=== PATIENT | male | born 1985 | race Caucasian/White ===

== ENCOUNTER 2016-07-30 14:50 | Emergency (ER) | payer SELFPAY ==
[~2016-07-30] VITALS: Ht 182.9 cm; Wt 84.0 kg
[2016-07-30 14:52] VITALS: BP 129/78; PULSE 107; RESP 24; TEMP 101.2; O2SAT 94
[2016-07-30] MEDS ORDERED: IBUPROFEN 800 MG TAB PO ONE (16:15)
[2016-07-30] MEDS ORDERED: SODIUM CHLOR 0.9% 1000 ML INJ 1,000 ML IV ONE ×2 (16:15→17:45)
--- NOTE | 2016-07-30 16:15 | PD ---
HPI Chief Complaint: Fever Time Seen by Provider: 16:06 Travel History International Travel<30 days: No Contact w/Intl Traveler<30days: No Traveled to known affect area: No History of Present Illness HPI Patient is a 31-year-old male who presents emergency for evaluation of fever, sore throat, headache, cough, nausea, body aches. He states his symptoms have been ongoing for 2 days. He reports being seen in another emergency department yesterday and being told he was dehydrated and discharged home. He denies any chest pain, shortness of breath, abdominal pain, vomiting, diarrhea. Patient reports taking Tylenol 2 tablets approximately 4 hours ago, he does not know the dose. Has a history of IV drug use stated that he has been clean for 2 months and currently living in a skilled nursing house. His past medical history is significant for hepatitis C. [facility] Past Medical History Hepatitis: Yes (C) Medical other: Yes (history of IV drug use, meth) Past Surgical History Oral Surgery: Yes (jaw surgery) Social History Alcohol Use: No Tobacco Use: Yes Substance Use: No (history of IV meth up until 2 months prior to today) Allergies-Medications (Allergen,Severity, Reaction): Coded Allergies: No Known Allergies (Unverified , 07/30/16) Reported Meds & Prescriptions Reported Meds & Active Scripts Active No Active Prescriptions or Reported Medications Review of Systems Except as stated in HPI: all other systems reviewed are Neg General / Constitutional: Positive: Fever, Chills Eyes: No: Visual changes HENT: Positive: Headaches, Sore Throat, No: Neck Stiffness, Neck Pain Cardiovascular: No: Chest Pain or Discomfort Respiratory: Positive: Cough, Pleuritic Pain, No: Shortness of Breath Gastrointestinal: Positive: Nausea, Loss of Appetite, No: Vomiting, Diarrhea, Abdominal Pain Genitourinary: No: Dysuria Musculoskeletal: Positive: Myalgias Neurologic: Positive: Headache, No: Weakness, Dizziness, Syncope Physical Exam Narrative GENERAL: Alert, well-developed, well-nourished, male. Resting comfortably in no acute distress. SKIN: Warm and dry. HEAD: Atraumatic. Normocephalic. EYES: Pupils equal and round. No scleral icterus. No injection or drainage. ENT: No nasal bleeding or discharge. Mucous membranes pink and moist. Erythema noted to posterior pharynx. Airway is patent. NECK: Trachea midline. No JVD. No meningeal signs. CARDIOVASCULAR: Regular rhythm, tachycardic. No murmur appreciated. RESPIRATORY: No accessory muscle use. Clear to auscultation. Breath sounds equal bilaterally. GASTROINTESTINAL: Abdomen soft, non-tender, nondistended. Hepatic and splenic margins not palpable. MUSCULOSKELETAL: No obvious deformities. No clubbing. No cyanosis. No edema. NEUROLOGICAL: Awake and alert. No obvious cranial nerve deficits. Motor grossly within normal limits. Normal speech. PSYCHIATRIC: Appropriate mood and affect; insight and judgment normal. Data Data Last Documented VS Vital Signs Date Time Temp Pulse Resp B/P Pulse Ox O2 Delivery O2 Flow Rate FiO2 07/30/16 18:53 99.4 98 18 99/54 96 Room Air Orders Electrocardiogram (07/30/16 16:03) Complete Blood Count With Diff (07/30/16 16:03) Comprehensive Metabolic Panel (07/30/16 16:03) Lactic Acid Sepsis Protocol (07/30/16 16:03) Urinalysis - C+S If Indicated (07/30/16 16:03) Influenzae A/B Antigen (07/30/16 16:03) Blood Culture (07/30/16 16:03) Chest, Single Ap (07/30/16 16:03) Ibuprofen (Motrin) (07/30/16 16:15) Sodium Chlor 0.9% 1000 Ml Inj (Ns 1000 M (07/30/16 16:15) ^ Indirect Sales Exec / Telemetry (07/30/16 16:03) Oximetry (07/30/16 16:03) Drug Screen, Random Urine (07/30/16 16:03) Iv Access Insert/Monitor (07/30/16 16:03) Group A Rapid Strep Screen (07/30/16 16:06) Strep Culture (Group A) (07/30/16 14:18) Sodium Chlor 0.9% 1000 Ml Inj (Ns 1000 M (07/30/16 17:45) Acetaminophen (Tylenol) (07/30/16 17:45) Labs Laboratory Tests Test 07/30/16 07/30/16 14:10 14:18 White Blood Count 9.3 TH/MM3 Red Blood Count 4.71 MIL/MM3 Hemoglobin 14.2 GM/DL Hematocrit 41.0 % Mean Corpuscular Volume 87.1 FL Mean Corpuscular Hemoglobin 30.3 PG Mean Corpuscular Hemoglobin 34.7 % Concent Red Cell Distribution Width 12.6 % Platelet Count 127 TH/MM3 Mean Platelet Volume 8.8 FL Neutrophils (%) (Auto) 89.0 % Lymphocytes (%) (Auto) 4.6 % Monocytes (%) (Auto) 6.0 % Eosinophils (%) (Auto) 0.1 % Basophils (%) (Auto) 0.3 % Neutrophils # (Auto) 8.3 TH/MM3 Lymphocytes # (Auto) 0.4 TH/MM3 Monocytes # (Auto) 0.6 TH/MM3 Eosinophils # (Auto) 0.0 TH/MM3 Basophils # (Auto) 0.0 TH/MM3 CBC Comment DIFF FINAL Differential Comment Sodium Level 135 MEQ/L Potassium Level 3.9 MEQ/L Chloride Level 102 MEQ/L Carbon Dioxide Level 25.6 MEQ/L Anion Gap 7 MEQ/L Blood Urea Nitrogen 11 MG/DL Creatinine 0.88 MG/DL Estimat Glomerular Filtration 102 ML/MIN Rate Random Glucose 123 MG/DL Lactic Acid Level 1.2 mmol/L Calcium Level 8.4 MG/DL Total Bilirubin 0.4 MG/DL Aspartate Amino Transf 47 U/L (AST/SGOT) Alanine Aminotransferase 284 U/L (ALT/SGPT) Alkaline Phosphatase 61 U/L Total Protein 6.5 GM/DL Albumin 3.1 GM/DL Urine Color LIGHT-YELLOW Urine Turbidity CLEAR Urine pH 5.5 Urine Specific [place] 1.009 Urine Protein NEG mg/dL Urine Glucose (UA) NEG mg/dL Urine Ketones NEG mg/dL Urine Occult Blood NEG Urine Nitrite NEG Urine Bilirubin NEG Urine Urobilinogen LESS THAN 2.0 MG/DL Urine Leukocyte Esterase NEG Urine RBC LESS THAN 1 /hpf Urine WBC 1 /hpf Urine Mucus FEW /lpf Microscopic Urinalysis Comment CATH-CULT NOT IND Urine Opiates Screen NEG Urine Barbiturates Screen NEG Urine Amphetamines Screen NEG Urine Benzodiazepines Screen NEG Urine Cocaine Screen NEG Urine Cannabinoids Screen NEG MDM Medical Decision Making Medical Screen Exam Complete: Yes Emergency Medical Condition: Yes Interpretation(s) Vital Signs Date Time Temp Pulse Resp B/P Pulse Ox O2 Delivery O2 Flow Rate FiO2 07/30/16 14:52 101.2 107 24 129/78 94 Room Air Differential Diagnosis Viral syndrome versus sepsis versus pneumonia versus UTI versus pharyngitis versus other Narrative Course Patient is a 31-year-old male who presented to emergency department for evaluation of fever, chills, sore throat, cough, nausea. His symptoms have been going on for approximately 2 days. He was seen and evaluated in another emergency department yesterday and told he was dehydrated and sent home. He states that he took Tylenol 4 hours ago and denies any current IV drug use. Upon arrival to [facility] patient's temperature was reassessed at 103. Patient was placed on telemetry monitoring, continuous pulse oximetry, IV access was initiated. Labs and imaging ordered and pending. Ibuprofen ordered for his temp of 103. Patient be given 1 L of IV fluids at this time as well. CBC, lactic acid, chemistry, urinalysis are unremarkable, chest x-ray shows cardiomegaly otherwise normal examination, blood cultures are pending. Influenza and strep screen are negative. His symptoms have been ongoing for approximately 2 days, patient is likely experiencing a viral syndrome. His urine drug screen is negative. Vital signs reassessed, temperature is currently 102.4 and his heart rate continues to be 112. Patient will be given an additional liter of normal saline IV as well as acetaminophen by mouth. We'll reassess. After an additional liter of normal saline as well as oral acetaminophen patient 's temp was reassessed at 99.4 and his heart rate is 98. Patient was encouraged to maintain adequate fluid intake, take ibuprofen as needed and as directed for fevers and pain. He was further encouraged to return to emergency department for any new or worsening symptoms. Patient verbalized understanding of these instructions. Patient stable for discharge. Diagnosis Primary Impression: Viral syndrome Referrals: [facility] Primary Care Physician Patient Instructions: General Instructions, Viral Syndrome (ED) Additional Instructions: Take ibuprofen as needed and as directed for fevers and pain Maintain adequate fluid intake to avoid dehydration Follow-up with your primary care provider or at [facility] Return to emergency department for any new or worsening symptoms Med/Other Pt SpecificInfo: Prescription(s) given Scripts Ibuprofen 800 Mg [id number] Mg PO Q6HR PRN (PAIN) 10 Days Ref 0 Prov:Anat Lr 07/30/16 Disposition: 01 DISCHARGE HOME Condition: Stable Anat Lr Jul 30, 2016 16:15
[2016-07-30 16:33] VITALS: BP 109/61; PULSE 108; RESP 18; TEMP 103; O2SAT 97
[2016-07-30 16:33] LABS: AUTOMATED NEUTROPHIL # 8.3 TH/MM3 (1.8-7.7); BASOPHIL % 0.3 % (0.0-2.0); EOSINOPHIL % 0.1 % (0.0-4.0); HEMO FLAGS DIFF FINAL; LYMPH % 4.6 % (9.0-44.0); LYMPHOCYTE # 0.4 TH/MM3 (1.0-4.8); MEAN CELL VOLUME 87.1 FL (80.0-100.0); MEAN CORPUSCULAR HEMOGLOBIN 30.3 PG (27.0-34.0); MEAN CORPUSCULAR HGB CONC 34.7 % (32.0-36.0); PLATELET COUNT 127 TH/MM3 (150-450); RED BLOOD COUNT 4.71 MIL/MM3 (4.50-5.90); RED CELL DISTRIBUTION WIDTH 12.6 % (11.6-17.2); WHITE BLOOD COUNT 9.3 TH/MM3 (4.0-11.0)
[2016-07-30 16:33] LABS: BLOOD, URINE NEG (NEG); GLUCOSE,URINE NEG (NEG); KETONE, URINE NEG (NEG); MUCUS URINE FEW /lpf (OCC); NITRITE,URINE NEG (NEG); PH, URINE 5.5 (5.0-8.5); URINE COLOR LIGHT-YELLOW (YELLW/STRAW)
[2016-07-30 16:34] LABS: COMMENT (UR) CATH-CULT NOT IND; CULTURE IF INDICATED CATH CULTURE NOT IND
--- NOTE | 2016-07-30 16:36 | RADRPT ---
EXAM DATE/TIME: 07/30/2016 16:14 [facility] COMPARISON: No previous studies available for comparison. INDICATIONS : Fever MEDICAL HISTORY : None. SURGICAL HISTORY : None. ENCOUNTER: Initial ACUITY: 3 days PAIN SCORE: 0/10 LOCATION: Bilateral chest FINDINGS: The heart is enlarged. The pulmonary vascular pattern is normal. The lungs are clear. CONCLUSION: 1. Cardiomegaly. 2. No acute focal pulmonary infiltrate or pulmonary vascular congestion. Stephane Frias MD on July 30, 2016 at 16:25 Board Certified Radiologist. This report was verified electronically.
[2016-07-30 16:39] LABS: AMPHETAMINE, URINE NEG (NEG); BARBITURATES, URINE NEG (NEG); COCAINE, URINE NEG (NEG)
[2016-07-30 16:53] LABS: ALKALINE PHOSPHATASE 61 U/L (45-117); ALT (GPT) 284 U/L (12-78); ANION GAP 7 MEQ/L (5-15); AST (GOT) 47 U/L (15-37); BICARBONATE 25.6 MEQ/L (21.0-32.0); BLOOD UREA NITROGEN 11 MG/DL (7-18); CHLORIDE 102 MEQ/L (98-107); GLOMERULAR FILTRATION RATE 102 ML/MIN (>89); POTASSIUM 3.9 MEQ/L (3.5-5.1); SODIUM (NA) 135 MEQ/L (136-145); TOTAL BILIRUBIN ADULT 0.4 MG/DL (0.2-1.0)
--- NOTE | 2016-07-30 17:07 | PD ---
Data Data Last Documented VS Vital Signs Date Time Temp Pulse Resp B/P Pulse Ox O2 Delivery O2 Flow Rate FiO2 07/30/16 16:33 103.0 108 18 109/61 97 Room Air Orders Electrocardiogram (07/30/16 16:03) Complete Blood Count With Diff (07/30/16 16:03) Comprehensive Metabolic Panel (07/30/16 16:03) Lactic Acid Sepsis Protocol (07/30/16 16:03) Urinalysis - C+S If Indicated (07/30/16 16:03) Influenzae A/B Antigen (07/30/16 16:03) Blood Culture (07/30/16 16:03) Chest, Single Ap (07/30/16 16:03) Ibuprofen (Motrin) (07/30/16 16:15) Sodium Chlor 0.9% 1000 Ml Inj (Ns 1000 M (07/30/16 16:15) ^ Electromechanical Assembly Technician / Telemetry (07/30/16 16:03) Oximetry (07/30/16 16:03) Drug Screen, Random Urine (07/30/16 16:03) Iv Access Insert/Monitor (07/30/16 16:03) Group A Rapid Strep Screen (07/30/16 16:06) Strep Culture (Group A) (07/30/16 14:18) Labs Laboratory Tests Test 07/30/16 07/30/16 14:10 14:18 White Blood Count 9.3 TH/MM3 Red Blood Count 4.71 MIL/MM3 Hemoglobin 14.2 GM/DL Hematocrit 41.0 % Mean Corpuscular Volume 87.1 FL Mean Corpuscular Hemoglobin 30.3 PG Mean Corpuscular Hemoglobin 34.7 % Concent Red Cell Distribution Width 12.6 % Platelet Count 127 TH/MM3 Mean Platelet Volume 8.8 FL Neutrophils (%) (Auto) 89.0 % Lymphocytes (%) (Auto) 4.6 % Monocytes (%) (Auto) 6.0 % Eosinophils (%) (Auto) 0.1 % Basophils (%) (Auto) 0.3 % Neutrophils # (Auto) 8.3 TH/MM3 Lymphocytes # (Auto) 0.4 TH/MM3 Monocytes # (Auto) 0.6 TH/MM3 Eosinophils # (Auto) 0.0 TH/MM3 Basophils # (Auto) 0.0 TH/MM3 CBC Comment DIFF FINAL Differential Comment Sodium Level 135 MEQ/L Potassium Level 3.9 MEQ/L Chloride Level 102 MEQ/L Carbon Dioxide Level 25.6 MEQ/L Anion Gap 7 MEQ/L Blood Urea Nitrogen 11 MG/DL Creatinine 0.88 MG/DL Estimat Glomerular Filtration 102 ML/MIN Rate Random Glucose 123 MG/DL Lactic Acid Level 1.2 mmol/L Calcium Level 8.4 MG/DL Total Bilirubin 0.4 MG/DL Aspartate Amino Transf 47 U/L (AST/SGOT) Alanine Aminotransferase 284 U/L (ALT/SGPT) Alkaline Phosphatase 61 U/L Total Protein 6.5 GM/DL Albumin 3.1 GM/DL Urine Color LIGHT-YELLOW Urine Turbidity CLEAR Urine pH 5.5 Urine Specific [place] 1.009 Urine Protein NEG mg/dL Urine Glucose (UA) NEG mg/dL Urine Ketones NEG mg/dL Urine Occult Blood NEG Urine Nitrite NEG Urine Bilirubin NEG Urine Urobilinogen LESS THAN 2.0 MG/DL Urine Leukocyte Esterase NEG Urine RBC LESS THAN 1 /hpf Urine WBC 1 /hpf Urine Mucus FEW /lpf Microscopic Urinalysis Comment CATH-CULT NOT IND Urine Opiates Screen NEG Urine Barbiturates Screen NEG Urine Amphetamines Screen NEG Urine Benzodiazepines Screen NEG Urine Cocaine Screen NEG Urine Cannabinoids Screen NEG MDM Supervised Visit with FARRAH: Yes Narrative Course I, Dr. Parks, have reviewed the advance practice practioner's documentation and am in agreement, met with the patient face to face, made the diagnosis, and the medical decision making was done by me. *My assessment and Findings: 31-year-old male with history of methamphetamine IVDU, hepatitis C here with complaint of 2 days of generalized body aches, fever , sore throat, nausea, cough. Patient seen in outside emergency department and diagnosed with dehydration and discharged home. Patient states his temperature seemed higher today, prompting ER visit. Patient's slightly tachycardic, heart rate 103. He really doesn't have any localizing symptoms. No recent travel or sick contacts and he denies IV drug use for the last 2 months. No evidence of erythema, abscess at injection sites on exam. There does not appear to be any fresh track harrison. Tachycardic, regular rhythm. No murmurs. Abdomen is soft. Differential includes viral syndrome, influenza, strep pharyngitis, UTI, intra -abdominal pathology, bacteremia. The entirety of patient's laboratory workup, imaging was unremarkable. Patient felt improved after IV fluids and symptom control will be discharged home while we await blood cultures. Scripts No Active Prescriptions or Reported Meds Berta Parks MD Jul 30, 2016 17:07
[2016-07-30] MEDS ORDERED: ACETAMINOPHEN 500 MG CPLT PO ONE (17:45)
[2016-07-30 18:08] VITALS: BP 100/55; PULSE 106; RESP 18; O2SAT 96
[2016-07-30 18:53] VITALS: BP 99/54; PULSE 98; RESP 18; TEMP 99.4; O2SAT 96
[2016-07-30] MEDS ORDERED: IBUP800T23 PO (18:58)
--- NOTE | 2016-07-30 21:29 | EKG ---
Date Performed: 07/30/2016 Time Performed: 16:22:22 PTAGE: 31 years EKG: SINUS TACHYCARDIA NONSPECIFIC T-WAVE ABNORMALITY ABNORMAL RHYTHM ECG NO PREVIOUS TRACING DOCTOR: Brandt Saavedra Interpretating Date/Time 07/30/2016 21:27:19
== END 2016-07-30 19:11 | disposition home or self-care (01) ==
LOC: NEPC 14:50
DX: B34.9 Viral infection, unspecified (principal); R50.9 Fever, unspecified; J02.9 Acute pharyngitis, unspecified; R51 Headache; R05 Cough; R11.0 Nausea; B19.20 Unspecified viral hepatitis C without hepatic coma; Z72.0 Tobacco use; R00.0 Tachycardia, unspecified
CPT/HCPCS: 71010; 80053; 80307; 81001; 83605; 85025; 87040; 87081; 87804; 87880; 93005; 96360; 96361; 99284; J7030

== ENCOUNTER 2017-04-22 23:23 | Emergency (ER) | payer OTHER ==
[~2017-04-22] VITALS: Ht 170.2 cm; Wt 80.0 kg
[~2017-04-22 23:23] MED LIST: IBUP800T23 PO
[2017-04-22 23:45] VITALS: BP 126/79; PULSE 94; RESP 20; TEMP 98.3; O2SAT 100
[2017-04-23] MEDS ORDERED: SODIUM CHLOR 0.9% 1000 ML INJ 1,000 ML IV ONE
[2017-04-23] MEDS ORDERED: LORazepam 2 MG/ML VIAL IV PUSH ONE
[2017-04-23] MEDS ORDERED: SODIUM CHLORIDE 0.9% FLUSH 10 ML FLUSH IVF PRN
--- NOTE | 2017-04-23 00:20 | PD ---
HPI Chief Complaint: Psychiatric Symptoms Time Seen by Provider: 23:54 Travel History International Travel<30 days: No Contact w/Intl Traveler<30days: No History of Present Illness HPI Patient is a 32-year-old male presenting to the emergency Department under [place] act for psychiatric evaluation. Patient was hallucinating, he reported that they were been trying to break into his house and he himself called the police. When police arrived on scene there was no one in his house although patient still felt that there was. Patient admits to using methamphetamines, he states he has not used any methamphetamines in the last 48 hours. Patient is denying any hallucinations, he denies any suicidal or homicidal ideations. [facility] Past Medical History Hepatitis: Yes (C) Past Surgical History Oral Surgery: Yes (jaw surgery) Social History Alcohol Use: No Tobacco Use: Yes (1 ppd) Substance Use: Yes (methamphetamine) Allergies-Medications (Allergen,Severity, Reaction): Coded Allergies: No Known Allergies (Unverified , 07/30/16) Reported Meds & Prescriptions Reported Meds & Active Scripts Active Ibuprofen 800 Mg Tab 800 Mg PO Q6HR PRN 10 Days Review of Systems Except as stated in HPI: all other systems reviewed are Neg Psychiatric: Positive: Disorder of Thought, Mood Disorder, Substance Abuse Physical Exam Narrative GENERAL: Well-developed, well-nourished, alert male. SKIN: Warm and dry. HEAD: Atraumatic. Normocephalic. EYES: Pupils equal and round. No scleral icterus. No injection or drainage. ENT: No nasal bleeding or discharge. Mucous membranes pink and moist. NECK: Trachea midline. No JVD. CARDIOVASCULAR: Regular rate and rhythm. RESPIRATORY: No accessory muscle use. Clear to auscultation. Breath sounds equal bilaterally. GASTROINTESTINAL: Abdomen soft, non-tender, nondistended. Hepatic and splenic margins not palpable. MUSCULOSKELETAL: Extremities without clubbing, cyanosis, or edema. No obvious deformities. NEUROLOGICAL: Awake and alert. No obvious cranial nerve deficits. Motor grossly within normal limits. Five out of 5 muscle strength in the arms and legs. Normal speech. PSYCHIATRIC: Agitated mood and affect; insight and judgment impaired. Hallucinations Data Data Last Documented VS Vital Signs Date Time Temp Pulse Resp B/P (MAP) Pulse Ox O2 Delivery O2 Flow Rate FiO2 04/23/17 01:57 72 18 114/57 (76) 98 Room Air Orders Orders Complete Blood Count With Diff (04/22/17 23:51) Comprehensive Metabolic Panel (04/22/17 23:51) Urinalysis - C+S If Indicated (04/22/17 23:51) Oximetry (04/22/17 23:51) Iv Access Insert/Monitor (04/22/17 23:51) Ecg Monitoring (04/22/17 23:51) Psych Screen (04/22/17 23:51) Sodium Chloride 0.9% Flush (Ns Flush) (04/23/17 00:00) Restraints Non-Violent CRISTHIAN.Q3H (04/22/17 23:51) Drug Screen, Random Urine (04/22/17 23:51) Alcohol (Ethanol) (04/22/17 23:51) Salicylates (Aspirin) (04/22/17 23:51) Tylenol (Acetaminophen) (04/22/17 23:51) Lorazepam Inj (Ativan Inj) (04/23/17 00:00) Sodium Chlor 0.9% 1000 Ml Inj (Ns 1000 M (04/23/17 00:00) Haloperidol Inj (Haldol Inj) (04/23/17 00:30) Diphenhydramine Inj (Benadryl Inj) (04/23/17 00:30) Labs Laboratory Tests Test 04/23/17 00:10 White Blood Count 10.1 TH/MM3 Red Blood Count 4.64 MIL/MM3 Hemoglobin 14.0 GM/DL Hematocrit 40.0 % Mean Corpuscular Volume 86.3 FL Mean Corpuscular Hemoglobin 30.3 PG Mean Corpuscular Hemoglobin Concent 35.1 % Red Cell Distribution Width 12.1 % Platelet Count 273 TH/MM3 Mean Platelet Volume 8.9 FL Neutrophils (%) (Auto) 57.9 % Lymphocytes (%) (Auto) 31.7 % Monocytes (%) (Auto) 7.7 % Eosinophils (%) (Auto) 1.9 % Basophils (%) (Auto) 0.8 % Neutrophils # (Auto) 5.9 TH/MM3 Lymphocytes # (Auto) 3.2 TH/MM3 Monocytes # (Auto) 0.8 TH/MM3 Eosinophils # (Auto) 0.2 TH/MM3 Basophils # (Auto) 0.1 TH/MM3 CBC Comment DIFF FINAL Differential Comment Blood Urea Nitrogen 12 MG/DL Creatinine 0.86 MG/DL Random Glucose 92 MG/DL Total Protein 7.5 GM/DL Albumin 4.3 GM/DL Calcium Level 8.6 MG/DL Alkaline Phosphatase 58 U/L Aspartate Amino Transf (AST/SGOT) 50 U/L Alanine Aminotransferase (ALT/SGPT) 112 U/L Total Bilirubin 0.8 MG/DL Sodium Level 142 MEQ/L Potassium Level 3.5 MEQ/L Chloride Level 108 MEQ/L Carbon Dioxide Level 25.7 MEQ/L Anion Gap 8 MEQ/L Estimat Glomerular Filtration Rate 104 ML/MIN Salicylates Level LESS THAN 1.7 MG/DL Acetaminophen Level LESS THAN 2.0 MCG/ML Ethyl Alcohol Level LESS THAN 3 MG/DL MDM Medical Decision Making Medical Screen Exam Complete: Yes Emergency Medical Condition: Yes Interpretation(s) Laboratory Tests Test 04/23/17 00:10 White Blood Count 10.1 TH/MM3 Red Blood Count 4.64 MIL/MM3 Hemoglobin 14.0 GM/DL Hematocrit 40.0 % Mean Corpuscular Volume 86.3 FL Mean Corpuscular Hemoglobin 30.3 PG Mean Corpuscular Hemoglobin Concent 35.1 % Red Cell Distribution Width 12.1 % Platelet Count 273 TH/MM3 Mean Platelet Volume 8.9 FL Neutrophils (%) (Auto) 57.9 % Lymphocytes (%) (Auto) 31.7 % Monocytes (%) (Auto) 7.7 % Eosinophils (%) (Auto) 1.9 % Basophils (%) (Auto) 0.8 % Neutrophils # (Auto) 5.9 TH/MM3 Lymphocytes # (Auto) 3.2 TH/MM3 Monocytes # (Auto) 0.8 TH/MM3 Eosinophils # (Auto) 0.2 TH/MM3 Basophils # (Auto) 0.1 TH/MM3 CBC Comment DIFF FINAL Differential Comment Blood Urea Nitrogen 12 MG/DL Creatinine 0.86 MG/DL Random Glucose 92 MG/DL Total Protein 7.5 GM/DL Albumin 4.3 GM/DL Calcium Level 8.6 MG/DL Alkaline Phosphatase 58 U/L Aspartate Amino Transf (AST/SGOT) 50 U/L Alanine Aminotransferase (ALT/SGPT) 112 U/L Total Bilirubin 0.8 MG/DL Sodium Level 142 MEQ/L Potassium Level 3.5 MEQ/L Chloride Level 108 MEQ/L Carbon Dioxide Level 25.7 MEQ/L Anion Gap 8 MEQ/L Estimat Glomerular Filtration Rate 104 ML/MIN Salicylates Level LESS THAN 1.7 MG/DL Acetaminophen Level LESS THAN 2.0 MCG/ML Ethyl Alcohol Level LESS THAN 3 MG/DL Vital Signs Date Time Temp Pulse Resp B/P (MAP) Pulse Ox O2 Delivery O2 Flow Rate FiO2 04/23/17 01:57 72 18 114/57 (76) 98 Room Air Differential Diagnosis Mood disorder versus substance abuse versus psychosis versus metabolic abnormality versus other Narrative Course Patient presented under [place] acted hallucinations. Patient continued to hallucinate in the emergency department. He became physically aggressive and verbally threatening. Patient had to be placed in locked restraints for his own safety as well as the safety of staff. Patient admitted to using methamphetamines however he states he did not use them the last 48 hours. He denies any visual or auditory hallucinations, he further denied any suicidal or homicidal ideations. Mental health screening discussed with the patient. Psychiatric screen ordered. Patient was given Haldol, Benadryl, Ativan. Patient was reassessed and was found to be resting comfortably. CBC, chemistry, salicylate, acetaminophen, alcohol level reviewed, no acute abnormalities identified. Patient is medically cleared for psychiatric evaluation at this time. Diagnosis Primary Impression: Medical clearance for psychiatric admission Condition: Stable Anat Lr Apr 23, 2017 00:20
[2017-04-23 00:30] LABS: AUTOMATED NEUTROPHIL # 5.9 TH/MM3 (1.8-7.7); BASOPHIL # 0.1 TH/MM3 (0-0.2); BASOPHIL % 0.8 % (0.0-2.0); EOSINOPHIL # 0.2 TH/MM3 (0-0.4); EOSINOPHIL % 1.9 % (0.0-4.0); HEMO FLAGS DIFF FINAL; LYMPH % 31.7 % (9.0-44.0); LYMPHOCYTE # 3.2 TH/MM3 (1.0-4.8); MEAN CELL VOLUME 86.3 FL (80.0-100.0); MEAN CORPUSCULAR HEMOGLOBIN 30.3 PG (27.0-34.0); MEAN CORPUSCULAR HGB CONC 35.1 % (32.0-36.0); MONO % 7.7 % (0.0-8.0); NEUT % 57.9 % (16.0-70.0); PLATELET COUNT 273 TH/MM3 (150-450); RED BLOOD COUNT 4.64 MIL/MM3 (4.50-5.90); RED CELL DISTRIBUTION WIDTH 12.1 % (11.6-17.2); WHITE BLOOD COUNT 10.1 TH/MM3 (4.0-11.0)
[2017-04-23] MEDS ORDERED: HALOPERIDOL LACTATE 5 MG/ML AMP IM ONE (00:30)
[2017-04-23] MEDS ORDERED: diphenhydrAMINE HCL 50 MG/ML VIAL IV PUSH ONE (00:30)
[2017-04-23 00:45] LABS: ANION GAP 8 MEQ/L (5-15); AST (GOT) 50 U/L (15-37); BICARBONATE 25.7 MEQ/L (21.0-32.0); BLOOD UREA NITROGEN 12 MG/DL (7-18); CHLORIDE 108 MEQ/L (98-107); GLOMERULAR FILTRATION RATE 104 ML/MIN (>89); POTASSIUM 3.5 MEQ/L (3.5-5.1); SODIUM (NA) 142 MEQ/L (136-145)
[2017-04-23 00:49] LABS: ALKALINE PHOSPHATASE 58 U/L (45-117); ALT (GPT) 112 U/L (12-78); TOTAL BILIRUBIN ADULT 0.8 MG/DL (0.2-1.0)
[2017-04-23 00:50] LABS: ACETAMINOPHEN LESS THAN 2.0 MCG/ML (10.0-30.0); ALCOHOL LESS THAN 3 MG/DL (0-5)
[2017-04-23 01:57] VITALS: BP 114/57; PULSE 72; RESP 18; O2SAT 98
[2017-04-23 10:25] VITALS: BP 116/60; PULSE 70; RESP 14; O2SAT 98
--- NOTE | 2017-04-23 17:45 | PD ---
History of Present Illness Chief Complaint: Psychiatric Symptoms Time Seen by Provider: 17:30 Travel History International Travel<30 Days: No Contact w/Intl Traveler<30days: No Legal Status Legal Status: Sheehan Act Sheehan Act Signed By: Dipak Nuñez History of Present Illness: History of Present Illness HPI Patient is a 32-year-old male with no previous psychiatric history and history of 15 year of substance use, and substance of choice methamphetamine presenting to the emergency Department under Sheehan act initiated by law enforcement for psychiatric evaluation. The BA alleges that" Mr Lowery was discharged from [facility] today for overdose of speed. Mr Lowery began hallucinating thinking someone was trying to break into his house . He had a kitchen knife in his hand when the police arrived. Patient states that he called the police himself. Patient admits to using methamphetamines, he states he has not used any methamphetamines in the last 48 hours. Patient is denying any hallucinations, he denies any suicidal or homicidal ideations. EMR reviewed. No previous contact with [facility] psychiatry. No toxicology report available. Patient is now awake, alert. oriented male with long dreads. Fair hygiene. Speech is clear, logical. No psychosis, no john. He denies that he is hearing any vices Denies any suicidal or homicidal ideation, intent or plan. He states " I ate a piece of crystal meth 72 hours ago and it made me crazy". He admits to having ingested meth prior to incident noted above. He is denying any psychiatric symptomatology. He is requesting discharge. Not interested in any aftercare [facility] Past Medical History Medical History: Unable to Obtain Diminished Hearing: No Hepatitis: Yes (C) Tetanus Vaccination: Unknown Influenza Vaccination: No Past Surgical History Surgical History: Unable to Obtain Oral Surgery: Yes (jaw surgery) Psychiatric History Psychiatric History Hx Psychiatric Treatment: deneis any psychiatric history History of Inpatient Treatment: No Guns or firearms in home: No Social History , lives with , no children. works building docks Hx Alcohol Use: Yes Hx Tobacco Use: Yes Hx Substance Use: Yes (meth) Substance Use Type: Amphetamines-Stimulants Hx of Substance Use Treatment: No Family Psychiatric History Negative Allergies-Medications (Allergen,Severity, Reaction): Coded Allergies: No Known Allergies (Unverified , 04/23/17) Reported Meds & Prescriptions Reported Meds & Active Scripts Active No Active Prescriptions or Reported Medications Review of Systems Except as stated in HPI: all other systems reviewed are Neg Exam Alert: Yes [place]: Person (ox4) Mood: Calm Affect: Appropriate Speech: Clear, Logical Eye Contact: Normal Memory Intact: Comment (No gross abnormality) Hallucinations: Other (Deneis any) Delusions: No Suicidal: Ideation (Deneos any) Homicidal: Ideation (Deneis any) Insight/Judgement Por. Not impaired. MDM Medical Decision Making Medical Record Reviewed: Yes Assessment/Plan HPI Patient is a 32-year-old male with no previous psychiatric history and history of 15 year of substance use presenting to the emergency Department under Sheehan act for psychiatric evaluation. Patient was hallucinating, he reported that they were been trying to break into his house and he himself called the police. When police arrived on scene there was no one in his house although patient still felt that there was. Patient admits to using methamphetamines, he states he has not used any methamphetamines in the last 48 hours. Patient is not psychotic, not manic and denies any suicidal or homicidal ideation, intent or plan. He presents no unstable mental illness as defined under the Sheehan act. His issue is substance use. He is not interested in pursuing treatment at this time. Psychiatrically clear for discharge from ED Orders Orders Complete Blood Count With Diff (04/22/17 23:51) Comprehensive Metabolic Panel (04/22/17 23:51) Urinalysis - C+S If Indicated (04/22/17 23:51) Oximetry (04/22/17 23:51) Iv Access Insert/Monitor (04/22/17 23:51) Ecg Monitoring (04/22/17 23:51) Psych Screen (04/22/17 23:51) Sodium Chloride 0.9% Flush (Ns Flush) (04/23/17 00:00) Restraints Non-Violent CRISTHIAN.Q3H (04/22/17 23:51) Drug Screen, Random Urine (04/22/17 23:51) Alcohol (Ethanol) (04/22/17 23:51) Salicylates (Aspirin) (04/22/17 23:51) Tylenol (Acetaminophen) (04/22/17 23:51) Lorazepam Inj (Ativan Inj) (04/23/17 00:00) Sodium Chlor 0.9% 1000 Ml Inj (Ns 1000 M (04/23/17 00:00) Haloperidol Inj (Haldol Inj) (04/23/17 00:30) Diphenhydramine Inj (Benadryl Inj) (04/23/17 00:30) Diet Regular Basic (04/23/17 Breakfast) Diet Regular Basic (04/23/17 Lunch) Results Vital Signs Date Time Temp Pulse Resp B/P (MAP) Pulse Ox O2 Delivery O2 Flow Rate FiO2 04/23/17 10:25 70 14 116/60 (78) 98 Room Air 04/23/17 03:19 94 24 04/23/17 01:57 72 18 114/57 (76) 98 Room Air 04/22/17 23:45 98.3 94 20 126/79 (95) 100 Room Air Laboratory Tests Test 04/23/17 00:10 White Blood Count 10.1 Red Blood Count 4.64 Hemoglobin 14.0 Hematocrit 40.0 Mean Corpuscular Volume 86.3 Mean Corpuscular Hemoglobin 30.3 Mean Corpuscular Hemoglobin Concent 35.1 Red Cell Distribution Width 12.1 Platelet Count 273 Mean Platelet Volume 8.9 Neutrophils (%) (Auto) 57.9 Lymphocytes (%) (Auto) 31.7 Monocytes (%) (Auto) 7.7 Eosinophils (%) (Auto) 1.9 Basophils (%) (Auto) 0.8 Neutrophils # (Auto) 5.9 Lymphocytes # (Auto) 3.2 Monocytes # (Auto) 0.8 Eosinophils # (Auto) 0.2 Basophils # (Auto) 0.1 CBC Comment DIFF FINAL Differential Comment Blood Urea Nitrogen 12 Creatinine 0.86 Random Glucose 92 Total Protein 7.5 Albumin 4.3 Calcium Level 8.6 Alkaline Phosphatase 58 Aspartate Amino Transf (AST/SGOT) 50 Alanine Aminotransferase (ALT/SGPT) 112 Total Bilirubin 0.8 Sodium Level 142 Potassium Level 3.5 Chloride Level 108 Carbon Dioxide Level 25.7 Anion Gap 8 Estimat Glomerular Filtration Rate 104 Salicylates Level LESS THAN 1.7 Acetaminophen Level LESS THAN 2.0 Ethyl Alcohol Level LESS THAN 3 Diagnosis Primary Impression: Amphetamine abuse 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
--- NOTE | 2017-04-23 18:38 | PD ---
Physical Exam Date Seen by Provider: Apr 23, 2017 Time Seen by Provider: 18:38 Data Data Last Documented VS Vital Signs Date Time Temp Pulse Resp B/P (MAP) Pulse Ox O2 Delivery O2 Flow Rate FiO2 04/23/17 10:25 70 14 116/60 (78) 98 Room Air 04/22/17 23:45 98.3 Orders Orders Complete Blood Count With Diff (04/22/17 23:51) Comprehensive Metabolic Panel (04/22/17 23:51) Urinalysis - C+S If Indicated (04/22/17 23:51) Oximetry (04/22/17 23:51) Iv Access Insert/Monitor (04/22/17 23:51) Ecg Monitoring (04/22/17 23:51) Sodium Chloride 0.9% Flush (Ns Flush) (04/23/17 00:00) Restraints Non-Violent CRISTHIAN.Q3H (04/22/17 23:51) Drug Screen, Random Urine (04/22/17 23:51) Alcohol (Ethanol) (04/22/17 23:51) Salicylates (Aspirin) (04/22/17 23:51) Tylenol (Acetaminophen) (04/22/17 23:51) Lorazepam Inj (Ativan Inj) (04/23/17 00:00) Sodium Chlor 0.9% 1000 Ml Inj (Ns 1000 M (04/23/17 00:00) Haloperidol Inj (Haldol Inj) (04/23/17 00:30) Diphenhydramine Inj (Benadryl Inj) (04/23/17 00:30) Diet Regular Basic (04/23/17 Breakfast) Diet Regular Basic (04/23/17 Lunch) Labs Laboratory Tests Test 04/23/17 00:10 White Blood Count 10.1 TH/MM3 Red Blood Count 4.64 MIL/MM3 Hemoglobin 14.0 GM/DL Hematocrit 40.0 % Mean Corpuscular Volume 86.3 FL Mean Corpuscular Hemoglobin 30.3 PG Mean Corpuscular Hemoglobin Concent 35.1 % Red Cell Distribution Width 12.1 % Platelet Count 273 TH/MM3 Mean Platelet Volume 8.9 FL Neutrophils (%) (Auto) 57.9 % Lymphocytes (%) (Auto) 31.7 % Monocytes (%) (Auto) 7.7 % Eosinophils (%) (Auto) 1.9 % Basophils (%) (Auto) 0.8 % Neutrophils # (Auto) 5.9 TH/MM3 Lymphocytes # (Auto) 3.2 TH/MM3 Monocytes # (Auto) 0.8 TH/MM3 Eosinophils # (Auto) 0.2 TH/MM3 Basophils # (Auto) 0.1 TH/MM3 CBC Comment DIFF FINAL Differential Comment Blood Urea Nitrogen 12 MG/DL Creatinine 0.86 MG/DL Random Glucose 92 MG/DL Total Protein 7.5 GM/DL Albumin 4.3 GM/DL Calcium Level 8.6 MG/DL Alkaline Phosphatase 58 U/L Aspartate Amino Transf (AST/SGOT) 50 U/L Alanine Aminotransferase (ALT/SGPT) 112 U/L Total Bilirubin 0.8 MG/DL Sodium Level 142 MEQ/L Potassium Level 3.5 MEQ/L Chloride Level 108 MEQ/L Carbon Dioxide Level 25.7 MEQ/L Anion Gap 8 MEQ/L Estimat Glomerular Filtration Rate 104 ML/MIN Salicylates Level LESS THAN 1.7 MG/DL Acetaminophen Level LESS THAN 2.0 MCG/ML Ethyl Alcohol Level LESS THAN 3 MG/DL MDM Supervised Visit with FARRAH: No Narrative Course 32-year-old male brought to the ED under Sheehan act. The patient was initially seen by CESAR Couch and medically cleared. He was evaluated by CESAR Peñaloza and the BA was lifted. On my exam the patient is alert and oriented, has no somatic complaints. GENERAL: Well-nourished, well-developed white male in no acute distress. PSYCHIATRIC: Anxious SKIN: Focused skin assessment warm/dry. Multiple tattoos. HEAD: Normocephalic. EYES: No scleral icterus. No injection or drainage. NECK: Supple, trachea midline. No JVD or lymphadenopathy. CARDIOVASCULAR: Regular rate and rhythm without murmurs, gallops, or rubs. RESPIRATORY: Breath sounds clear and equal bilaterally. No accessory muscle use. GASTROINTESTINAL: Abdomen soft, non-tender, nondistended. MUSCULOSKELETAL: No cyanosis, or edema. Demonstrates a normal gait. BACK: Nontender without obvious deformity. No CVA tenderness. Patient was advised to seek outpatient treatment at [facility], though he is adamant that he does not have a substance abuse problem. He is stable and discharged home. 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 Return to the ED for any urgent or emergent medical condition. Scripts No Active Prescriptions or Reported Meds Disposition: 01 DISCHARGE HOME Condition: Stable Anca Naranjo Apr 23, 2017 18:38
== END 2017-04-23 19:15 | disposition home or self-care (01) ==
LOC: NEPD 23:23 → NEPB 04-23 19:15
DX: F15.951 Other stimulant use, unspecified with stimulant-induced psychotic disorder with hallucinations (principal); Z72.0 Tobacco use
CPT/HCPCS: 80053; 80307; 85025; 96372; 96374; 96375; 99285; J1200; J1630; J2060; J7030

== ENCOUNTER 2017-11-28 22:37 | Emergency (ER) | payer SELFPAY ==
[~2017-11-28] VITALS: Ht 180.3 cm; Wt 80.0 kg
[2017-11-28 22:49] VITALS: BP 158/75; PULSE 89; RESP 14; TEMP 97.7; O2SAT 99
--- NOTE | 2017-11-28 23:02 | PD ---
HPI Chief Complaint: Chest Pain Time Seen by Provider: 22:53 Travel History International Travel<30 days: No Contact w/Intl Traveler<30days: No Traveled to known affect area: No History of Present Illness HPI 32yo M with PMH of hepatitis and former drug use here with c/o midsternal chest pain today. Said he was drinking lots of coffee and energy drink at 6-7pm today and then feel sharp jolts in midsternum. Said he thinks it was probably anxiety. Pt given aspirin by EVAC. Pt currently has no chest pain. Denies any sob, n/v, abdominal pain, focal weakness or numbness. Pt feels anxious but cant have any narcotics because he is in a program for drug use. Denies any cocaine or IV drug use. Denies any history of hemoptysis, PE/DVT, family history of sudden cardiac . PFSH Past Medical History Diminished Hearing: No Hepatitis: Yes (C) Past Surgical History Oral Surgery: Yes (jaw surgery) Social History Alcohol Use: Yes Tobacco Use: Yes Substance Use: Yes (meth) Allergies-Medications (Allergen,Severity, Reaction): Coded Allergies: No Known Allergies (Unverified Adverse Reaction, Unknown, 11/28/17) Reported Meds & Prescriptions Reported Meds & Active Scripts Active No Active Prescriptions or Reported Medications Review of Systems Except as stated in HPI: all other systems reviewed are Neg Physical Exam Narrative GENERAL: 32yo M not in distress. SKIN: Focused skin assessment warm/dry. HEAD: Atraumatic. Normocephalic. EYES: Pupils equal and round. No scleral icterus. No injection or drainage. ENT: No nasal bleeding or discharge. Mucous membranes pink and moist. NECK: Trachea midline. No JVD. CARDIOVASCULAR: Regular rate and rhythm. No murmur appreciated. RESPIRATORY: No accessory muscle use. Clear to auscultation. Breath sounds equal bilaterally. GASTROINTESTINAL: Abdomen soft, non-tender, nondistended. MUSCULOSKELETAL: No obvious deformities. No clubbing. No cyanosis. No edema. NEUROLOGICAL: Awake and alert. No obvious cranial nerve deficits. Motor grossly within normal limits in all extremities. Sensation equal. Normal speech. PSYCHIATRIC: Anxious appearing. Data Data Last Documented VS Vital Signs Date Time Temp Pulse Resp B/P (MAP) Pulse Ox O2 Delivery O2 Flow Rate FiO2 11/28/17 22:54 100 Room Air 11/28/17 22:49 97.7 89 14 158/75 (102) Orders Orders Electrocardiogram (11/28/17 ) Chest, Single Ap (11/28/17 ) Diphenhydramine (Benadryl) (11/28/17 23:15) MDM Medical Decision Making Medical Screen Exam Complete: Yes Emergency Medical Condition: Yes Interpretation(s) EKG: NSR 87bpm. Normal axis. No ST segment elevation or depression. Differential Diagnosis Anxiety vs. GERD vs. musculoskeletal pain Narrative Course 32yo M with atypical chest pain after drinking coffee and energy drink. Pt is very well appearing but does seem anxious. EKG is reassuring. CXR negative. Pt given diphenhydramine and feels better. Patient wants prescription for diphenhydramine. Chest pain is very atypical, do not think it is cardiac. Return precautions given. Diagnosis Primary Impression: Atypical chest pain Patient Instructions: General Instructions Departure Forms: Tests/Procedures Additional Instructions: Please follow up with your primary care physician in 2-3 days. Return to the ED if symptoms worsen. Med/Other Pt SpecificInfo: Prescription(s) given Scripts Diphenhydramine (Diphenhydramine) 25 Mg Cap 25 MG PO Q6H Y for ANXIETY, #10 CAP 0 Refills Prov: Sunshine Lugo DO 11/29/17 Disposition: 01 DISCHARGE HOME Condition: Stable Sunshine Lugo DO November 28, 2017 23:02
--- NOTE | 2017-11-28 23:12 | RADRPT ---
EXAM DATE/TIME: 11/28/2017 22:55 [facility] COMPARISON: No previous studies available for comparison. INDICATIONS : Chest Pain. MEDICAL HISTORY : Hepatitis C. SURGICAL HISTORY : Mandible ORIF ENCOUNTER: Initial ACUITY: 1 day PAIN SCORE: 08/01 LOCATION: Bilateral chest FINDINGS: A single view of the chest demonstrates the lungs to be symmetrically aerated without evidence of mas s, infiltrate or effusion. The cardiomediastinal contours are unremarkable. Osseous structures are intact. CONCLUSION: No evidence of acute cardiopulmonary disease. Guido Benjamin MD on November 28, 2017 at 23:10 Board Certified Radiologist. This report was verified electronically.
[2017-11-28] MEDS ORDERED: diphenhydrAMINE HCL 50 MG CAP PO ONE (23:15)
[2017-11-29] MEDS ORDERED: DIPH25CA PO (00:10)
--- NOTE | 2017-11-29 19:58 | EKG ---
Date Performed: 11/28/2017 Time Performed: 22:55:18 PTAGE: 32 years EKG: Sinus rhythm NORMAL ECG Since the PREVIOUS TRACING , no significant change noted PREVIOUS TRACING 07/30/16 @ 16.22.22 DOCTOR: Lenny Carolina Interpretating Date/Time 11/29/2017 19:57:17
== END 2017-11-29 00:34 | disposition home or self-care (01) ==
LOC: NEPD 22:37
DX: R07.89 Other chest pain (principal); Z72.0 Tobacco use
CPT/HCPCS: 71045; 93005; 99284; Q0163

== ENCOUNTER 2018-01-04 22:54 | Emergency (ER) | payer SELFPAY ==
[~2018-01-04 22:54] MED LIST changes: +DIPH25CA PO; -IBUP800T23 PO
[2018-01-04 23:09] VITALS: BP 139/82; PULSE 72; RESP 18; TEMP 98.7; O2SAT 100
[2018-01-04 23:29] VITALS: BP 148/70; PULSE 71; RESP 18; O2SAT 98
--- NOTE | 2018-01-04 23:48 | PD ---
HPI Chief Complaint: Cardiac Complaint Time Seen by Provider: 23:43 Travel History International Travel<30 days: No Contact w/Intl Traveler<30days: No Traveled to known affect area: No History of Present Illness HPI Note is in error. PFSH Past Medical History Diminished Hearing: No Hepatitis: Yes (C) Past Surgical History Oral Surgery: Yes (jaw surgery) Social History Alcohol Use: No Tobacco Use: No Substance Use: Yes (PAST IV DRUG USE ) Allergies-Medications (Allergen,Severity, Reaction): Coded Allergies: No Known Allergies (Unverified Adverse Reaction, Unknown, 11/28/17) Reported Meds & Prescriptions Reported Meds & Active Scripts Active No Active Prescriptions or Reported Medications Review of Systems Except as stated in HPI: all other systems reviewed are Neg Data Data Last Documented VS Orders Orders Electrocardiogram (01/04/18 ) Chest, Single Ap (01/04/18 ) Complete Blood Count With Diff (01/04/18 23:47) Comprehensive Metabolic Panel (01/04/18 23:47) Troponin I (01/04/18 23:47) Ecg Monitoring (01/04/18 23:47) Iv Access Insert/Monitor (01/04/18 23:47) Oximetry (01/04/18 23:47) Oxygen Administration (01/04/18 23:47) Sodium Chloride 0.9% Flush (Ns Flush) (01/05/18 00:00) Ed Discharge Order (01/05/18 01:13) Labs Laboratory Tests Test 01/04/18 23:40 White Blood Count 9.0 TH/MM3 Red Blood Count 4.60 MIL/MM3 Hemoglobin 13.9 GM/DL Hematocrit 39.6 % Mean Corpuscular Volume 86.1 FL Mean Corpuscular Hemoglobin 30.3 PG Mean Corpuscular Hemoglobin Concent 35.2 % Red Cell Distribution Width 12.3 % Platelet Count 230 TH/MM3 Mean Platelet Volume 8.7 FL Neutrophils (%) (Auto) 59.9 % Lymphocytes (%) (Auto) 30.4 % Monocytes (%) (Auto) 6.0 % Eosinophils (%) (Auto) 2.8 % Basophils (%) (Auto) 0.9 % Neutrophils # (Auto) 5.4 TH/MM3 Lymphocytes # (Auto) 2.7 TH/MM3 Monocytes # (Auto) 0.5 TH/MM3 Eosinophils # (Auto) 0.3 TH/MM3 Basophils # (Auto) 0.1 TH/MM3 CBC Comment DIFF FINAL Differential Comment Blood Urea Nitrogen 22 MG/DL Creatinine 1.36 MG/DL Random Glucose 85 MG/DL Total Protein 7.1 GM/DL Albumin 3.8 GM/DL Calcium Level 8.7 MG/DL Alkaline Phosphatase 59 U/L Aspartate Amino Transf (AST/SGOT) 29 U/L Alanine Aminotransferase (ALT/SGPT) 35 U/L Total Bilirubin 0.5 MG/DL Sodium Level 141 MEQ/L Potassium Level 4.0 MEQ/L Chloride Level 106 MEQ/L Carbon Dioxide Level 23.0 MEQ/L Anion Gap 12 MEQ/L Estimat Glomerular Filtration Rate 61 ML/MIN Troponin I LESS THAN 0.02 NG/ML MDM Medical Decision Making Medical Screen Exam Complete: Yes Emergency Medical Condition: Yes Diagnosis Primary Impression: Chest pain, atypical Referrals: [facility] Additional Instructions: Liver enzymes much better! Follow up with a regular physician for a check up and stay clean. Scripts No Active Prescriptions or Reported Meds Disposition: 01 DISCHARGE HOME Condition: Stable Stephane Crespo MD Jan 04, 2018 23:48
[2018-01-05] MEDS ORDERED: SODIUM CHLORIDE 0.9% FLUSH 10 ML FLUSH IVF PRN
[2018-01-05 00:10] LABS: AUTOMATED NEUTROPHIL # 5.4 TH/MM3 (1.8-7.7); BASOPHIL # 0.1 TH/MM3 (0-0.2); BASOPHIL % 0.9 % (0.0-2.0); EOSINOPHIL # 0.3 TH/MM3 (0-0.4); EOSINOPHIL % 2.8 % (0.0-4.0); HEMATOCRIT 39.6 % (39.0-51.0); HEMOGLOBIN 13.9 GM/DL (13.0-17.0); LYMPH % 30.4 % (9.0-44.0); LYMPHOCYTE # 2.7 TH/MM3 (1.0-4.8); MEAN CELL VOLUME 86.1 FL (80.0-100.0); MEAN CORPUSCULAR HEMOGLOBIN 30.3 PG (27.0-34.0); MEAN CORPUSCULAR HGB CONC 35.2 % (32.0-36.0); MEAN PLATELET VOLUME 8.7 FL (7.0-11.0); MONOCYTE # 0.5 TH/MM3 (0-0.9); NEUT % 59.9 % (16.0-70.0); PLATELET COUNT 230 TH/MM3 (150-450); RED CELL DISTRIBUTION WIDTH 12.3 % (11.6-17.2)
--- NOTE | 2018-01-05 00:18 | RADRPT ---
EXAM DATE: 01/04/2018 11:54 PM EDT AGE/SEX: 32 years / Male INDICATIONS: Left sided chest pain for 1 week CLINICAL DATA: This is the patient's initial encounter. Patient reports that signs and symptoms have been present for 1 week and indicates a pain score of 6/10. MEDICAL/SURGICAL HISTORY: None. None. [place] [facility] [place]. . FINDINGS: A single AP view of the chest demonstrates the lungs to be symmetrically aerated without evidence of mass, infiltrate or effusion. The cardiomediastinal contours are unremarkable. Osseous structures a re intact. CONCLUSION: No acute cardiopulmonary disease. Electronically signed by: Wood Villar MD 01/05/2018 12:17 AM EDT
[2018-01-05 00:49] LABS: ALBUMIN 3.8 GM/DL (3.4-5.0); BLOOD UREA NITROGEN 22 MG/DL (7-18); CALCIUM 8.7 MG/DL (8.5-10.1); CHLORIDE 106 MEQ/L (98-107); CREATININE 1.36 MG/DL (0.60-1.30); GLOMERULAR FILTRATION RATE 61 ML/MIN (>89); GLUCOSE,RANDOM 85 MG/DL (74-106); SODIUM (NA) 141 MEQ/L (136-145)
[2018-01-05 00:50] LABS: ALT (GPT) 35 U/L (12-78); AST (GOT) 29 U/L (15-37)
[2018-01-05 00:52] LABS: ALKALINE PHOSPHATASE 59 U/L (45-117); TOTAL PROTEIN 7.1 GM/DL (6.4-8.2)
[2018-01-05 00:54] LABS: TOTAL BILIRUBIN ADULT 0.5 MG/DL (0.2-1.0)
[2018-01-05 01:00] VITALS: BP 104/50; PULSE 70; RESP 16; O2SAT 98
[2018-01-05 01:55] LABS: TROPONIN I LESS THAN 0.02 NG/ML (0.02-0.05)
--- NOTE | 2018-01-05 12:58 | EKG ---
Date Performed: 01/04/2018 Time Performed: 22:36:21 PTAGE: 32 years EKG: Sinus rhythm NORMAL ECG PREVIOUS TRACING : 11/28/2017 22.55 Since the previous tracing, no significant change noted DOCTOR: Felipe Kuo Interpretating Date/Time 01/05/2018 12:54:12
--- NOTE | 2018-01-06 06:29 | PD ---
HPI Chief Complaint: Cardiac Complaint Time Seen by Provider: 23:43 Travel History International Travel<30 days: No Contact w/Intl Traveler<30days: No Traveled to known affect area: No History of Present Illness HPI Please disregard my previous note on this patient was entered in error. Is a 32-year-old male with a history of IV drug abuse is about 2 months presents emergency department for evaluation of minimal epigastric discomfort. Patient states that he is really concerned about his liver because he was told his liver enzymes are elevated in the past and would like to have them checked. He denies any shortness of breath nausea vomiting diarrhea constipation or injury. He is just concerned about his general state of health and wants to be checked. [facility] Past Medical History Diminished Hearing: No Hepatitis: Yes (C) Past Surgical History Oral Surgery: Yes (jaw surgery) Social History Alcohol Use: No Tobacco Use: No Substance Use: Yes (PAST IV DRUG USE ) Allergies-Medications (Allergen,Severity, Reaction): Coded Allergies: No Known Allergies (Unverified Adverse Reaction, Unknown, 11/28/17) Reported Meds & Prescriptions Reported Meds & Active Scripts Active No Active Prescriptions or Reported Medications Review of Systems Except as stated in HPI: all other systems reviewed are Neg Physical Exam Narrative GENERAL: Well-developed well-nourished pleasant cooperative male in no obvious distress. SKIN: Focused skin assessment warm/dry. HEAD: Atraumatic. Normocephalic. EYES: Pupils equal and round. No scleral icterus. No injection or drainage. ENT: No nasal bleeding or discharge. Mucous membranes pink and moist. NECK: Trachea midline. No JVD. CARDIOVASCULAR: Regular rate and rhythm. No murmur appreciated. RESPIRATORY: No accessory muscle use. Clear to auscultation. Breath sounds equal bilaterally. GASTROINTESTINAL: Abdomen soft, non-tender, nondistended. Hepatic and splenic margins not palpable. MUSCULOSKELETAL: No obvious deformities. No clubbing. No cyanosis. No edema. NEUROLOGICAL: Awake and alert. No obvious cranial nerve deficits. Motor grossly within normal limits. Normal speech. PSYCHIATRIC: Appropriate mood and affect; insight and judgment normal. Data Data Last Documented VS Vital Signs Date Time Temp Pulse Resp B/P (MAP) Pulse Ox O2 Delivery O2 Flow Rate FiO2 01/05/18 01:27 01/05/18 01:00 70 16 98 Room Air 01/04/18 23:09 98.7 Orders Orders Electrocardiogram (01/04/18 ) Chest, Single Ap (01/04/18 ) Complete Blood Count With Diff (01/04/18 23:47) Comprehensive Metabolic Panel (01/04/18 23:47) Troponin I (01/04/18 23:47) Ecg Monitoring (01/04/18 23:47) Iv Access Insert/Monitor (01/04/18 23:47) Oximetry (01/04/18 23:47) Oxygen Administration (01/04/18 23:47) Sodium Chloride 0.9% Flush (Ns Flush) (01/05/18 00:00) Ed Discharge Order (01/05/18 01:13) Labs Laboratory Tests Test 01/04/18 23:40 White Blood Count 9.0 TH/MM3 Red Blood Count 4.60 MIL/MM3 Hemoglobin 13.9 GM/DL Hematocrit 39.6 % Mean Corpuscular Volume 86.1 FL Mean Corpuscular Hemoglobin 30.3 PG Mean Corpuscular Hemoglobin Concent 35.2 % Red Cell Distribution Width 12.3 % Platelet Count 230 TH/MM3 Mean Platelet Volume 8.7 FL Neutrophils (%) (Auto) 59.9 % Lymphocytes (%) (Auto) 30.4 % Monocytes (%) (Auto) 6.0 % Eosinophils (%) (Auto) 2.8 % Basophils (%) (Auto) 0.9 % Neutrophils # (Auto) 5.4 TH/MM3 Lymphocytes # (Auto) 2.7 TH/MM3 Monocytes # (Auto) 0.5 TH/MM3 Eosinophils # (Auto) 0.3 TH/MM3 Basophils # (Auto) 0.1 TH/MM3 CBC Comment DIFF FINAL Differential Comment Blood Urea Nitrogen 22 MG/DL Creatinine 1.36 MG/DL Random Glucose 85 MG/DL Total Protein 7.1 GM/DL Albumin 3.8 GM/DL Calcium Level 8.7 MG/DL Alkaline Phosphatase 59 U/L Aspartate Amino Transf (AST/SGOT) 29 U/L Alanine Aminotransferase (ALT/SGPT) 35 U/L Total Bilirubin 0.5 MG/DL Sodium Level 141 MEQ/L Potassium Level 4.0 MEQ/L Chloride Level 106 MEQ/L Carbon Dioxide Level 23.0 MEQ/L Anion Gap 12 MEQ/L Estimat Glomerular Filtration Rate 61 ML/MIN Troponin I LESS THAN 0.02 NG/ML MDM Medical Decision Making Medical Screen Exam Complete: Yes Emergency Medical Condition: Yes Differential Diagnosis ACS unlikely, NC unlikely, substance abuse recovery, transaminitis, hepatitis B , hepatitis C. Narrative Course Patient room to the emergency department, his transaminitis is much better today , he does have a history of hepatitis C. Discussed continued abstinence from substances and follow-up with a regular physician for checkup. He states is going to get insurance soon. He was referred to [facility] in the meantime. He is stable for discharge discussed return to ED criteria Diagnosis Primary Impression: Chest pain, atypical Referrals: [facility] Patient Instructions: General Instructions, Chest Pain (ED) Departure Forms: Tests/Procedures Additional Instructions: Liver enzymes much better! Follow up with a regular physician for a check up and stay clean. Scripts No Active Prescriptions or Reported Meds Disposition: 01 DISCHARGE HOME Condition: Stable Stephane Crespo MD Jan 06, 2018 06:29
== END 2018-01-05 01:51 | disposition home or self-care (01) ==
LOC: NEPE 22:54
DX: R07.89 Other chest pain (principal)
CPT/HCPCS: 71045; 80053; 84484; 85025; 93005

== ENCOUNTER 2018-07-19 19:58 | Inpatient (IN) ==
--- NOTE | 2018-07-19 20:40 | ED ---
HPI General Chief complaint: Chest Pain Stated complaint: chest pain Time Seen by Provider: 07/19/18 20:26 Source: patient Mode of arrival: ambulatory Limitations: no limitations History of Present Illness HPI narrative: 33yo M with PMH of Hep C, possible anxiety here with multiple complaints. Pt feels palpitations, sharp intermittent chest pain, tingling in arms and legs for a few days. So that at this moment, he feels a shooting sensation in his abdomen that goes through his entire body. Pt said he has been taking this supplement for muscle building and that he read the label today and it may cause liver toxicity so he is worried. He lives in a correction house so cannot have any benzodiazepine or narcotics. Related Data Home Medications Medication Instructions Recorded Confirmed No Known Home Medications 07/19/18 07/19/18 Allergies Allergy/AdvReac Type Severity Reaction Status Date / Time No Known Allergies Allergy Verified 07/19/18 21:00 Review of Systems ROS: all other systems reviewed are negative [facility] Medical History Medical History ADHD (Acute) HPV (human papilloma virus) anogenital infection (Acute) Hepatitis C (Acute) IV drug user (Acute) Social History Social History Substance History: No History of Abuse Second Hand Smoke Exposure: No Smoking Status: Never smoker Tobacco Type: Smokeless Tobacco How Often Do You Have a Drink Containing Alcohol: Never Immunization History Tetanus Immunization: <5 Years Exam Narrative Exam Narrative: GENERAL: 33yo M anxious appearing. SKIN: Focused skin assessment warm/dry. HEAD: Atraumatic. Normocephalic. EYES: Pupils equal and round. No scleral icterus. No injection or drainage. ENT: No nasal bleeding or discharge. Mucous membranes pink and moist. NECK: Trachea midline. No JVD. CARDIOVASCULAR: Regular rate and rhythm. No murmur appreciated. RESPIRATORY: No accessory muscle use. Clear to auscultation. Breath sounds equal bilaterally. GASTROINTESTINAL: Abdomen soft, non-tender, nondistended. No rebound tenderness or guarding. MUSCULOSKELETAL: No obvious deformities. No clubbing. No cyanosis. No edema. NEUROLOGICAL: Awake and alert. No obvious cranial nerve deficits. Motor grossly within normal limits in all extremities. Sensation intact. Normal speech. PSYCHIATRIC: Appropriate mood and affect; insight and judgment normal. Course Initial Documented Vital Signs Temperature 98.6 F 07/19/18 20:01 Pulse Rate 80 07/19/18 20:01 Respiratory Rate 20 07/19/18 20:01 Blood Pressure 140/71 07/19/18 20:01 Pulse Oximetry 98 07/19/18 20:01 Last Documented Vital Signs Temperature 98.2 F 07/20/18 12:00 Pulse Rate 65 07/20/18 12:00 Respiratory Rate 18 07/20/18 12:00 Blood Pressure 119/61 07/20/18 12:00 Pulse Oximetry 97 07/20/18 12:00 Medical Decision Making MDM Narrative Medical decision making narrative: 33yo M here with multiple complaints after using this supplement for body building that may cause liver toxicity. Pt has atypical chest pain and palpitations and feel that it may be related to his medication. Labs reviewed, no leukocytosis. H/H normal. BUN elevated at 21. Creatinine normal. AST mildly elevated at 94. Troponin negative. CPK elevated 2176. Pt given NS IVF x2. Will admit pt for rhabdomyolysis. Discussed with Dr. Shannon and accepted to her service. Medical Screen Exam Complete: Yes Emergency Medical Condition: Yes Differential Diagnosis Differential Diagnosis: Anxiety vs. rhabdomyolysis vs. hyperthyroid vs. dehydraiton Lab Data Result diagrams: 07/20/18 04:19 07/20/18 04:19 Lab Results 07/19/18 07/19/18 07/20/18 Range/Units 21:00 21:00 04:19 WBC 7.1 6.2 (4.0-11.0) th/mm3 RBC 4.76 4.65 (4.50-5.90) mil/mm3 Hgb 14.0 13.7 (13.0-17.0) gm/dL Hct 41.4 40.7 (39.0-51.0) % MCV 87.0 87.4 (80.0-100.0) fL MCH 29.4 29.5 (27.0-34.0) pg MCHC 33.8 33.7 (32.0-36.0) % RDW 13.0 12.9 (11.6-17.2) % Plt Count 234 218 (150-450) th/mm3 MPV 8.5 8.0 (7.0-11.0) fL Neut % (Auto) 50.7 42.1 (16.0-70.0) % Lymph % (Auto) 34.2 44.1 H (9.0-44.0) % Rogers % (Auto) 9.1 H 7.9 (0.0-8.0) % Eos % (Auto) 3.8 4.9 H (0.0-4.0) % Baso % (Auto) 2.2 H 1.0 (0.0-2.0) % Neut # (Auto) 3.6 2.6 (1.8-7.7) th/mm3 Lymph # (Auto) 2.4 2.8 (1.0-4.8) th/mm3 Rogers # (Auto) 0.6 0.5 (0.0-0.9) th/mm3 Eos # (Auto) 0.3 0.3 (0.0-0.4) th/mm3 Baso # (Auto) 0.2 0.1 (0.0-0.2) th/mm3 WBC Differential . . Differential Comment Auto diff final Auto diff final Sodium 143 (136-145) meq/L Potassium 3.9 (3.5-5.1) meq/L Chloride 107 (98-107) meq/L Carbon Dioxide 27.5 (21.0-32.0) meq/L Anion Gap 9 (5-15) meq/L BUN 21 H (7-18) mg/dL Creatinine 1.00 (0.60-1.30) mg/dL Estimated GFR 87 L (>89) mL/min Random Glucose 89 (74-106) mg/dL Calcium 8.5 (8.5-10.1) mg/dL Total Bilirubin 0.3 (0.2-1.0) mg/dL AST 94 H (15-37) U/L ALT 70 (12-78) U/L Alkaline Phosphatase 38 L (45-117) U/L Total Creatine Kinase 2176 H (39-308) U/L CK-MB (CK-2) 11.5 H (0.5-3.6) ng/mL CK-MB (CK-2) % 0.5 (0.0-4.0) % Troponin I Less than 0.02 L (0.02-0.05) ng/mL Total Protein 7.1 (6.4-8.2) g/dL Albumin 3.7 (3.4-5.0) g/dL 07/20/18 07/20/18 Range/Units 04:19 10:57 WBC (4.0-11.0) th/mm3 RBC (4.50-5.90) mil/mm3 Hgb (13.0-17.0) gm/dL Hct (39.0-51.0) % MCV (80.0-100.0) fL MCH (27.0-34.0) pg MCHC (32.0-36.0) % RDW (11.6-17.2) % Plt Count (150-450) th/mm3 MPV (7.0-11.0) fL Neut % (Auto) (16.0-70.0) % Lymph % (Auto) (9.0-44.0) % Rogers % (Auto) (0.0-8.0) % Eos % (Auto) (0.0-4.0) % Baso % (Auto) (0.0-2.0) % Neut # (Auto) (1.8-7.7) th/mm3 Lymph # (Auto) (1.0-4.8) th/mm3 Rogers # (Auto) (0.0-0.9) th/mm3 Eos # (Auto) (0.0-0.4) th/mm3 Baso # (Auto) (0.0-0.2) th/mm3 WBC Differential Differential Comment Sodium 145 (136-145) meq/L Potassium 4.0 (3.5-5.1) meq/L Chloride 113 H (98-107) meq/L Carbon Dioxide 25.8 (21.0-32.0) meq/L Anion Gap 6 (5-15) meq/L BUN 19 H (7-18) mg/dL Creatinine 0.84 (0.60-1.30) mg/dL Estimated GFR Greater than 89 (>89) mL/min Random Glucose 113 H (74-106) mg/dL Calcium 7.6 L D (8.5-10.1) mg/dL Total Bilirubin 0.2 (0.2-1.0) mg/dL AST 59 H (15-37) U/L ALT 54 (12-78) U/L Alkaline Phosphatase 33 L (45-117) U/L Total Creatine Kinase 1236 H 1150 H (39-308) U/L CK-MB (CK-2) 7.5 H 7.6 H (0.5-3.6) ng/mL CK-MB (CK-2) % 0.6 0.7 (0.0-4.0) % Troponin I Less than 0.02 L Less than 0.02 L (0.02-0.05) ng/mL Total Protein 5.9 L D (6.4-8.2) g/dL Albumin 3.0 L D (3.4-5.0) g/dL Imaging Data Radiologist's impression: Chest X-Ray 07/19/18 20:33 CONCLUSION: 1. No acute cardiopulmonary disease. ECG Data EKG Prior to Arrival: No Attestation: I personally reviewed and interpreted this ECG as follows: Interpretation: NSR 76bpm. Normal axis. No significant ST elevation or depression. QTc 378ms. Discharge Plan Discharge Disposition Patient Disposition: ED Admit(ED Internal Use Only) Discharge Order Discharge Orders: ED Use Only Admit Order (Routine); Ordered 07/19/18 Ordered By: Sunshine Lugo Discharge Details Diagnosis: Rhabdomyolysis Physicians Team ED Provider: Sunshine Lugo Primary Care Provider: Primary Care Lynsey Steiner Attending Provider: Stephane Townsend Status ED Status: Left Department Discharge Information Discharge Date/Time: 07/20/18 02:33
[2018-07-19 21:05] LABS: Baso # (Auto) 0.2 th/mm3 (0.0-0.2); Baso % (Auto) 2.2 % (0.0-2.0); Eos # (Auto) 0.3 th/mm3 (0.0-0.4); Eos % (Auto) 3.8 % (0.0-4.0); Hematocrit 41.4 % (39.0-51.0); Lymph # (Auto) 2.4 th/mm3 (1.0-4.8); Lymph % (Auto) 34.2 % (9.0-44.0); Mean Corpuscular HGB Conc 33.8 % (32.0-36.0); Mean Corpuscular Hemoglobin 29.4 pg (27.0-34.0); Mean Platelet Volume 8.5 fL (7.0-11.0); Mono # (Auto) 0.6 th/mm3 (0.0-0.9); Mono % (Auto) 9.1 % (0.0-8.0); Neut # (Auto) 3.6 th/mm3 (1.8-7.7); Neut % (Auto) 50.7 % (16.0-70.0); Platelet Count 234 th/mm3 (150-450); Red Blood Count 4.76 mil/mm3 (4.50-5.90); White Blood Count 7.1 th/mm3 (4.0-11.0)
--- NOTE | 2018-07-19 21:19 | XR ---
EXAM DATE: 07/19/2018 9:17 PM EST AGE/SEX: 33 years / Male INDICATIONS: Chest pain and palpitations after drinking pre workout. CLINICAL DATA: This is the patient's initial encounter. Patient reports that signs and symptoms have been present for 1 day and indicates a pain score of 10/10. MEDICAL/SURGICAL HISTORY: None. None. COMPARISON: [facility] [place], CHEST SINGLE AP, 01/04/2018. . FINDINGS: A single AP view of the chest demonstrates the lungs to be symmetrically aerated without evidence of mass, infiltrate or effusion. The cardiomediastinal contours are unremarkable. Osseous structures a re intact. CONCLUSION: 1. No acute cardiopulmonary disease. Electronically signed by: Uriel Corral MD Board Certified Radiologist 07/19/2018 9:18 PM ES T
[2018-07-19 21:28] LABS: Alanine Aminotransferase 70 U/L (12-78); Albumin 3.7 g/dL (3.4-5.0); Anion Gap 9 meq/L (5-15); Aspartate Aminotransferase 94 U/L (15-37); Blood Urea Nitrogen 21 mg/dL (7-18); Calcium 8.5 mg/dL (8.5-10.1); Carbon Dioxide 27.5 meq/L (21.0-32.0); Chloride 107 meq/L (98-107); Glomerular Filtration Rate 87 mL/min (>89); Glucose,Random 89 mg/dL (74-106); Potassium 3.9 meq/L (3.5-5.1); Sodium 143 meq/L (136-145)
[2018-07-19 21:32] LABS: Alkaline Phosphatase 38 U/L (45-117); Total Protein 7.1 g/dL (6.4-8.2)
[2018-07-19 21:58] LABS: Creatine Kinase 2176 U/L (39-308)
[2018-07-19 22:11] LABS: CKMB Percent 0.5 % (0.0-4.0); Creatine Kinase MB 11.5 ng/mL (0.5-3.6)
[2018-07-19] MEDS ORDERED: Sod Chloride 0.9% Inj 1,000 ML IV.SIG SCH ×2 (22:30)
[2018-07-19] MEDS ORDERED: Bisacodyl 10 MG Supp RECTAL PRN (23:12)
--- NOTE | 2018-07-20 00:50 | P.HPIM ---
History of Present Illness Primary Care Physician: No Primary Care Physician Mr. Lowery is a 33 y/o male with no significant medical problems who presented to the ER on 07/19/18 complaining of chest pain. He was found to be in rhabdomyolysis suspected secondary to work out supplements and weight lifting. He is admitted to the hospitalist service for medical management. The patient is seen in the ER. He is drowsy and not cooperative with interview. He reports some chest pain but will not provide any information and lies with his eyes closed sleeping despite my inquiries. Therefore, history mostly obtained from EMR. Inpatient Certification Inpatient Certification: I certify that the inpatient services were ordered in accordance with Medicare regulations governing the order. This includes certification that hospital inpatient services are reasonable and necessary and in the case of services not specified as inpatient-only under 42 CFR 419.22(n), that they are appropriately provided as inpatient services in accordance to with the 2-midnight benchmark under 43 CFR 412.3(e) Estimated Total Length of Stay (Days): 3 Plans for Post Hospital Care: Not yet determined Review of Systems ROS Unobtainable: other (patient uncooperative) PMFSH Medical History Medical History ADHD (Acute) HPV (human papilloma virus) anogenital infection (Acute) Hepatitis C (Acute) IV drug user (Acute) Social History Social History Substance History: Past History Smoking Status: Current every day smoker Tobacco Type: Smokeless Tobacco How Often Do You Have a Drink Containing Alcohol: Never Immunization History Tetanus Immunization: <5 Years Medications and Allergies Allergies Allergy/AdvReac Type Severity Reaction Status Date / Time No Known Allergies Allergy Verified 07/19/18 21:00 Home Medications Medication Instructions Recorded Confirmed Type No Known Home Medications 07/19/18 07/19/18 History Active Medications: Active Medications Bisacodyl (Dulcolax Supp) 10 mg RECTAL DAILY PRN PRN Reason: SEVERE CONSITIPATION Sodium Chloride (Ns Inj) 1,000 mls @ 175 mls/hr IV.CONT .Q5H43M MARS Ondansetron HCl (Zofran Inj) 4 mg IV.PUSH Q6H PRN PRN Reason: NAUSEA OR VOMITING Sodium Chloride (Ns Flush) 2 ml IV.FLUSH BID MARS Sodium Chloride (Ns Flush) 2 ml IV.FLUSH PRN PRN PRN Reason: FLUSH AFTER USING IV ACCESS Physical Exam Vital signs: Last Vital Signs Temp 98.6 F 07/19/18 20:01 Pulse 78 07/19/18 21:13 Resp 20 07/19/18 21:13 BP 126/57 L 07/19/18 21:13 Pulse Ox 97 07/19/18 21:13 Intake & Output 07/17/18 07/18/18 07/19/18 07/20/18 06:59 06:59 06:59 06:59 Intake Total 1000 / 1000 Balance 1000 / 1000 Weight 90.718 kg Narrative: GENERAL: This is a muscular, drowsy male patient, in no apparent distress. SKIN: No rashes, ecchymoses or lesions. Cool and dry. HEAD: Atraumatic. Normocephalic. EYES: No scleral icterus. No injection or drainage. ENT: Nose without bleeding, purulent drainage. NECK: Trachea midline. No JVD CARDIOVASCULAR: Regular rate and rhythm without murmurs, gallops, or rubs. RESPIRATORY: Clear to auscultation. Breath sounds equal bilaterally. No wheezes , rales, or rhonchi. GASTROINTESTINAL: Abdomen soft, non-tender, nondistended. No guarding. MUSCULOSKELETAL: Extremities without clubbing, cyanosis, or edema. No calf tenderness. NEUROLOGICAL: Awake and alert. Motor and sensory grossly within normal limits. Normal speech. Results Labs CBC & Chem 7: 07/19/18 21:00 07/19/18 21:00 Imaging Impressions Chest X-Ray 07/19/18 20:33 CONCLUSION: 1. No acute cardiopulmonary disease. Caprini VTE Risk Assessment Caprini VTE Risk Assessment: No/Low Risk (score <= 1) Caprini Risk Assessment Model: Point Value = 1 Point Value = 2 Point Value = 3 Point Value = 5 Age 41-60 Minor surgery BMI > 25 kg/m2 Swollen legs Varicose veins or History of unexplained or recurrent spontaneous Oral contraceptives or hormone replacement Sepsis (< 1 month) Serious lung disease, including pneumonia (< 1 month) Abnormal pulmonary function Acute myocardial infarction Congestive heart failure (< 1 month) History of inflammatory bowel disease Medical patient at bed rest Age 61-74 Arthroscopic surgery Major open surgery (> 45 min) Laparoscopic surgery (> 45 min) Malignancy Confined to bed (> 72 hours) Immobilizing plaster cast Central venous access Age >= 75 History of VTE Family history of VTE Factor V Leiden Prothrombin [id number] Lupus anticoagulant Anticardiolipin antibodies Elevated serum homocysteine Heparin-induced thrombocytopenia Other congenital or acquired thrombophilia Stroke (< 1 month) Elective arthroplasty Hip, pelvis, or leg fracture Acute spinal cord injury (< 1 month) Prophylaxis Regimen: Total Risk Factor Score Risk Level Prophylaxis Regimen 0-1 Low Early ambulation 2 Moderate Order ONE of the following: *Sequential Compression Device (SCD) *Heparin 5000 units SQ BID 3-4 Higher Order ONE of the following medications: *Heparin 5000 units SQ TID *Enoxaparin/Lovenox 40 mg SQ daily (WT < 150 kg, CrCl > 30 mL/min) *Enoxaparin/Lovenox 30 mg SQ daily (WT < 150 kg, CrCl > 10-29 mL/min) *Enoxaparin/Lovenox 30 mg SQ BID (WT < 150 kg, CrCl > 30 mL/min) AND/OR *Sequential Compression Device (SCD) 5 or more Highest Order ONE of the following medications: *Heparin 5000 units SQ TID (Preferred with Epidurals) *Enoxaparin/Lovenox 40 mg SQ daily (WT < 150 kg, CrCl > 30 mL/min) *Enoxaparin/Lovenox 30 mg SQ daily (WT < 150 kg, CrCl > 10-29 mL/min) *Enoxaparin/Lovenox 30 mg SQ BID (WT < 150 kg, CrCl > 30 mL/min) AND *Sequential Compression Device (SCD) Assessment and Plan Plan Mr. Lowery is a 33 y/o male with no significant medical problems who presented to the ER on 07/19/18 complaining of chest pain. He was found to be in rhabdomyolysis suspected secondary to work out supplements and weight lifting. He is admitted to the hospitalist service for medical management. Rhabdomyolysis - CK 2176 on admission - NS at 175 cc/hr - repeat CK and follow trend - unable to receive any narcotics because patient is in recovery Chest pain, atypical - suspect secondary to rhabdo - initial EKG personally reviewed - NSR with no ischemic changes - initial troponin I < 0.02 - continue to trend EKGs and cardiac enzymes to r/o ACS DVT prophylaxis - early ambulation
[2018-07-20] MEDS: Sod Chloride 0.9% Inj 1,000 ML IV.CONT SCH ×5 (04:26→22:54)
[2018-07-20 04:36] LABS: Baso # (Auto) 0.1 th/mm3 (0.0-0.2); Eos # (Auto) 0.3 th/mm3 (0.0-0.4); Eos % (Auto) 4.9 % (0.0-4.0); Hematocrit 40.7 % (39.0-51.0); Hemoglobin 13.7 gm/dL (13.0-17.0); Lymph # (Auto) 2.8 th/mm3 (1.0-4.8); Lymph % (Auto) 44.1 % (9.0-44.0); Mean Corpuscular HGB Conc 33.7 % (32.0-36.0); Mean Corpuscular Hemoglobin 29.5 pg (27.0-34.0); Mean Corpuscular Volume 87.4 fL (80.0-100.0); Mono # (Auto) 0.5 th/mm3 (0.0-0.9); Mono % (Auto) 7.9 % (0.0-8.0); Neut # (Auto) 2.6 th/mm3 (1.8-7.7); Neut % (Auto) 42.1 % (16.0-70.0); Platelet Count 218 th/mm3 (150-450); Red Blood Count 4.65 mil/mm3 (4.50-5.90); Red Cell Distribution Width 12.9 % (11.6-17.2); White Blood Count 6.2 th/mm3 (4.0-11.0)
[2018-07-20 05:04] LABS: Alanine Aminotransferase 54 U/L (12-78); Anion Gap 6 meq/L (5-15); Aspartate Aminotransferase 59 U/L (15-37); Blood Urea Nitrogen 19 mg/dL (7-18); Calcium 7.6 mg/dL (8.5-10.1); Carbon Dioxide 25.8 meq/L (21.0-32.0); Chloride 113 meq/L (98-107); Glomerular Filtration Rate Greater Than 89 mL/min (>89); Glucose,Random 113 mg/dL (74-106); Sodium 145 meq/L (136-145)
[2018-07-20 05:17] LABS: Alkaline Phosphatase 33 U/L (45-117); Creatine Kinase 1236 U/L (39-308); Total Protein 5.9 g/dL (6.4-8.2)
[2018-07-20 05:33] LABS: CKMB Percent 0.6 % (0.0-4.0); Creatine Kinase MB 7.5 ng/mL (0.5-3.6)
--- NOTE | 2018-07-20 09:32 | P.PNIM ---
Subjective Interval history: This morning and evaluated at bedside. Patient reports that he is feeling better over the last 24 hours and states that he originally presented with symptoms of palpitations. Patient reports that he had been taking a new pro hormone medication as a recommendation from a friend who working out and says that he started a week ago. At this moment patient says that his muscle aches are improving but still present. No chest pain or shortness of breath actively. Patient tolerating IV fluid hydration and is urinating. Patient reports that he urinates in the toilet which is why no ins and outs have been recorded in the computer. Physical Exam Vital signs: Last Vital Signs Temp 97.2 F L 07/20/18 08:00 Pulse 74 07/20/18 08:00 Resp 18 07/20/18 08:00 BP 144/65 H 07/20/18 08:00 Pulse Ox 96 07/20/18 08:00 Intake & Output 07/18/18 07/19/18 07/20/18 07/21/18 06:59 06:59 06:59 06:59 Intake Total 1999 Balance 1999 Weight 93 kg Narrative: GENERAL: This is a muscular, drowsy male patient, in no apparent distress. SKIN: No rashes, ecchymoses or lesions. Cool and dry. HEAD: Atraumatic. Normocephalic. EYES: No scleral icterus. No injection or drainage. ENT: Nose without bleeding, purulent drainage. NECK: Trachea midline. No JVD CARDIOVASCULAR: Regular rate and rhythm without murmurs, gallops, or rubs. RESPIRATORY: Clear to auscultation. Breath sounds equal bilaterally. No wheezes , rales, or rhonchi. GASTROINTESTINAL: Abdomen soft, non-tender, nondistended. No guarding. MUSCULOSKELETAL: Extremities without clubbing, cyanosis, or edema. No calf tenderness. No evidence of costochondritis NEUROLOGICAL: Awake and alert. Motor and sensory grossly within normal limits. Normal speech. Results Labs CBC & Chem 7: 07/20/18 04:19 07/20/18 04:19 Imaging Imaging: Impressions Chest X-Ray 07/19/18 20:33 CONCLUSION: 1. No acute cardiopulmonary disease. Assessment and Plan Plan Patient is a pleasant 33-year-old male with no past medical history presenting to emergency department for episode of palpitation found to have elevated CK levels concerning for rhabdomyolysis. Nephrology: Rhabdomyolysis Renal function appears to be maintained at this time. No evidence of acute kidney injury Continue aggressive IV fluid hydration normal saline at 175 cc/h Continue to trend CK levels daily Troponin level negative x3 EKG without acute ST changes Encourage patient to avoid hormonal medications which can precipitate or cause palpitations or rhabdomyolysis. Patient verbalized understanding of these instructions. CODE STATUS: Full code DVT prophylaxis: Ambulation Disposition: Medical surgery unit. Anticipate discharge in the next 24 hours with continued improvement in lab work
[2018-07-20 12:34] LABS: Creatine Kinase 1150 U/L (39-308)
[2018-07-20 12:47] LABS: CKMB Percent 0.7 % (0.0-4.0); Creatine Kinase MB 7.6 ng/mL (0.5-3.6)
--- NOTE | 2018-07-20 18:15 | ECG ---
Date Performed: 07/19/2018 Time Performed: 20:13:19 PTAGE: 33 years EKG: Sinus rhythm NORMAL ECG INTERPRETATION BASED ON A DEFAULT AGE OF 40 YEARS PREVIOUS TRACING : 01/04/2018 22.36 Since the previous tracing, no significant change not ed DOCTOR: Ermias Mullins Interpretating Date/Time 07/20/2018 18:14:10
[2018-07-21] MEDS: Sod Chloride 0.9% Inj 1,000 ML IV.CONT SCH (05:23)
[2018-07-21 09:55] LABS: CKMB Percent 0.6 % (0.0-4.0); Creatine Kinase MB 3.8 ng/mL (0.5-3.6)
--- NOTE | 2018-07-21 12:34 | P.DS ---
DS: Providers Date of admission: 07/19/18 23:12 Primary care physician: Lynsey Primary Care Physician DS: Summary Patient is a cameron 33-year-old male with no past medical history presenting to emergency department for episode of palpitation found to have elevated CK levels concerning for rhabdomyolysis. Nephrology: Rhabdomyolysis Renal function appears to be maintained at this time. No evidence of acute kidney injury Received aggressive IV fluid hydration normal saline at 175 cc/h.Continue fluids PO intake Continue to trend CK levels daily trending down, impoved significantly Troponin level negative x3 EKG without acute ST changes Encourage patient to avoid hormonal medications which can precipitate or cause palpitations or rhabdomyolysis. Patient verbalized understanding of these instructions. Patient imprpved cPK trending down significantly. dC home in stable condition to follow uo as OP with PCP Time Spent with Patient Total time spent providing and/or coordinating discharge services: >30 min Exam Narrative Exam Narrative: GENERAL: Cameron 33 yo male, in nad. CARDIOVASCULAR: Regular rate and rhythm. RESPIRATORY: No accessory muscle use. Clear to auscultation. Breath sounds equal bilaterally. GASTROINTESTINAL: Abdomen soft, non-tender, nondistended. Hepatic and splenic margins not palpable. MUSCULOSKELETAL: Extremities without clubbing, cyanosis, or edema. No obvious deformities. NEUROLOGICAL: Awake and alert. No obvious cranial nerve deficits. Motor grossly within normal limits. Five out of 5 muscle strength in the arms and legs. Normal speech. PSYCHIATRIC: Appropriate mood and affect; insight and judgment normal. Results Labs on day of discharge: Labs from last 24 hours 07/21/18 07/20/18 08:18 10:57 Total Creatine Kinase 607 H 1150 H CK-MB (CK-2) 3.8 H 7.6 H CK-MB (CK-2) % 0.6 0.7 Troponin I Less than 0.02 L Impressions ITS Impressions Chest X-Ray 07/19/18 20:33 CONCLUSION: 1. No acute cardiopulmonary disease. Discharge Plan Discharge Disposition Patient Disposition: 01 Discharge Home Discharge Condition Condition: Stable Discharge Order Discharge Orders: Discharge Order (Routine); Ordered 07/21/18 Ordered By: Melissa Augustine Discharge Details Anticipated Discharge Date: 07/21/18 Physicians Team Primary Care Provider: Primary Lynsey Loza Attending Provider: Melissa Augustine Rxs /Orders / Referrals /Forms Prescriptions: No Action No Known Home Medications RF: 0 Referrals: Primary Care Physici,No [Primary Care Provider] - See Instructions ( Please call the physician's office to book the appointment to be seen within [2-3 days]. Can go to [facility] if no insurance ) Discharge Instructions Patient Printed Instructions: Chest Pain (ED) Status ED Status: Left Department
[2018-07-21] MEDS ORDERED: LORazepam 0.5 MG Tablet PO PRN (13:00)
== END 2018-07-21 14:30 | disposition home or self-care (01) | DRG 558 ==
LOC: NEPD 19:58 → NEDA 19:58 → N06 07-20 02:17
PROVIDERS: ADMIT Hospitalist; ATTEND Hospitalist
CPT/HCPCS: 71010; 71045; 80053; 82550; 82552; 84484; 85025; 93005; 99285; J7030